=== PATIENT | male | born 1955 | race Caucasian/White ===

== ENCOUNTER 2018-04-28 02:57 | Emergency (ER) | payer OTHER ==
[~2018-04-28] VITALS: Ht 177.8 cm; Wt 83.9 kg
[~2018-04-28 02:57] MED LIST: AML5T PO; CLON0.2T PO; ENAL20TA70 PO; GABA300C10 PO; METF-370 PO; POTA10TA51 PO; SIMV-8 PO; WARF6TAB20 PO
[2018-04-28 03:00] VITALS: BP 176/118
--- NOTE | 2018-04-28 03:05 | NUR ---
Respiratory note: ABG RESULTS REPORTED TO DR. HAMILTON. NO NEW RESPIRATORY ORDERS GIVEN, PT REMAINS ON BIPAP, WILL CONTINUE TO MONITOR.
[2018-04-28] MEDS ORDERED: ALBUTEROL SULF 2.5 MG/0.5ML(0.5%) NEB SOLN NEB ONE ×3 (03:45→06:45)
[2018-04-28] MEDS ORDERED: DILTIAZEM HCL 25 MG/5 ML VIAL IV ONE ×2 (03:45→12:00)
[2018-04-28] MEDS ORDERED: IPRATROPIUM BROM 0.5 MG/2.5ML INH SOL NEB ONE ×2 (03:45→06:45)
[2018-04-28] MEDS ORDERED: methylPREDNISolone SOD SUCC 125 MG/2 ML VL IV ONE (03:45)
[2018-04-28 03:53] VITALS: BP 176/118
[2018-04-28] MEDS ORDERED: cefTRIAXone 1GM/50ML D5W 50 ML IV ONE (04:00)
[2018-04-28 04:07] LABS: Basophils # (auto) 0.1 uL; Basophils % (auto) 0.5 % (0.0-2.0); Eosinophils # (auto) 0.1 uL; Eosinophils % (auto) 1.1 % (0.0-7.0); Hematocrit 49.8 % (41.0-53.0); Hemoglobin 17.2 g/dL (13.5-17.5); Lymphocytes # (auto) 0.6 uL; Lymphocytes % (auto) 5.2 % (10.0-50.0); Mean Corpuscular Hemoglobin 33.6 pg (28.0-32.0); Mean Corpuscular Hgb Conc. 34.5 g/dL (32.0-36.0); Mean Corpuscular Volume 97.4 fL (80.0-100.0); Monocytes % (auto) 8.8 % (0.0-12.0); Neutrophils # (auto) 9.4 uL; Neutrophils % (auto) 84.4 % (37.0-80.0); Platelet Count (auto) 251 10^3/uL (140-450); Red Blood Cells 5.11 10^6/uL (4.5-5.90); Red Cell Distribution Width 13.4 % (11.8-14.3); White Blood Cell 11.1 10^3/uL (4.4-10.8)
[2018-04-28 04:20] LABS: INR 3.17 (0.9-1.15); Partial Thromboplastin Time 51.4 sec (23.78-33.04); Prothrombin Time 31.8 sec (9.27-12.13)
[2018-04-28 04:31] LABS: Magnesium 2.3 mg/dL (1.6-2.6); Phosphorus 3.6 mg/dL (2.5-4.90)
[2018-04-28 04:32] LABS: Albumin 4.6 g/dL (3.4-5.0); Anion Gap 11 (5-15); Blood Urea Nitrogen 11 mg/dL (7-18); Calcium 9.1 mg/dL (8.5-10.1); Carbon Dioxide 23 mmol/L (21-32); Chloride 105 mmol/L (98-107); Glucose 110 mg/dL (74-106); Potassium 3.2 mmol/L (3.5-5.1); Sodium 139 mmol/L (136-145)
[2018-04-28 04:35] LABS: Alanine Aminotransferase 30 U/L (16-61); BUN/Creatinine Ratio 12.6; GFR African American > 60 mL/min; GFR Non-African American > 60 mL/min
[2018-04-28 04:49] LABS: Alkaline Phosphatase 74 U/L (45-117); Aspartate Aminotransferase 24 U/L (15-37); Bilirubin, Total 0.9 mg/dL (0.2-1.0); Total Protein 8.5 g/dL (6.4-8.2)
[2018-04-28] MEDS ORDERED: HYDROcodone-ACET 10/325MG TAB PO ONE (06:15)
[2018-04-28 07:11] LABS: Urine Bacteria NONE SEEN /hpf (None Seen); Urine Blood 1+ /uL (Negative); Urine Hyaline Cast FEW /lpf (0 - 2); Urine Specific Gravity 1.015 (1.001-1.035); Urine WBC 12 /hpf (0 - 3)
[2018-04-28] MEDS ORDERED: POTASSIUM CHL 20 Meq TABLET PO ONE (07:45)
[2018-04-28] MEDS ORDERED: guaiFENesin 200 MG/10 ML UD PO PRN (08:15)
[2018-04-28] MEDS: cloNIDine HCL 0.1 MG TAB PO SCH ×2 (09:08→14:26)
[2018-04-28] MEDS ORDERED: amLODIPine BESYLATE 5 MG TAB PO SCH (10:00)
[2018-04-28] MEDS ORDERED: ALBUTEROL SULF 2.5 MG/0.5ML(0.5%) NEB SOLN NEB SCH (10:00)
[2018-04-28] MEDS ORDERED: BUDESONIDE (INHALATION) 0.5 MG/2 ML NEB NEB SCH (10:00)
[2018-04-28] MEDS ORDERED: IPRATROPIUM BROM 0.5 MG/2.5ML INH SOL NEB SCH (10:00)
[2018-04-28] MEDS ORDERED: ENALAPRIL MALEATE 10 MG TAB PO SCH (10:00)
[2018-04-28] MEDS ORDERED: ENALAPRILAT 1.25 MG/ML-1ML VIAL IV ONE (11:30)
[2018-04-28] MEDS ORDERED: PRED1PAK7 PO (11:33)
[2018-04-28] MEDS ORDERED: LEVO750T2 PO (11:33)
[2018-04-28] MEDS ORDERED: ALBU0.08 HHN (11:33)
[2018-04-28] MEDS ORDERED: ENALAPRILAT 1.25 MG/ML-1ML VIAL IV PRN (11:45)
[2018-04-28] MEDS ORDERED: GABAPENTIN 300 MG CAP PO SCH (14:00)
[2018-04-28] MEDS ORDERED: methylPREDNISolone SOD SUCC 125 MG/2 ML VL IV SCH (14:00)
[2018-04-28 14:26] VITALS: BP 132/94
== END 2018-04-28 14:45 | disposition home or self-care (01) ==
LOC: EDBD 02:57 → ER 02:57
DX: I48.91 Unspecified atrial fibrillation (principal); E11.9 Type 2 diabetes mellitus without complications; J40 Bronchitis, not specified as acute or chronic; I10 Essential (primary) hypertension; F12.90 Cannabis use, unspecified, uncomplicated; Z86.718 Personal history of other venous thrombosis and embolism
CPT/HCPCS: 36415; 36600; 71045; 80053; 81001; 82805; 82962; 83735; 83880; 84100; 84484; 85025; 85379; 85610; 85730; 93005; 94640; 96365; 96375; 96376; 99291; J0696; J2930; J7611; J7644

== ENCOUNTER 2021-09-25 18:52 | Emergency (ER) | payer OTHER ==
[~2021-09-25] VITALS: Ht 185.4 cm; Wt 95.3 kg
[~2021-09-25 18:52] MED LIST changes: +ALBU0.08 HHN; -ENAL20TA70 PO; +ENAL20TA8 PO; +LEVO750T8 PO; +PRED1PAK7 PO; +WARF6TAB2 PO; -WARF6TAB20 PO
[2021-09-25] MEDS ORDERED: ACETAMINOPHEN 325 MG TAB PO ONE (20:00)
[2021-09-25 20:09] LABS: Basophils # (auto) 0 10 ^3/uL (0-0.2); Basophils % (auto) 0.6 % (0.0-2.0); Eosinophils # (auto) 0 10 ^3/uL (0-0.8); Hematocrit 43.7 % (41.0-53.0); Hemoglobin 15.4 g/dL (13.5-17.5); Lymphocytes # (auto) 0.3 10 ^3/uL (0.4-5.4); Lymphocytes % (auto) 4.3 % (10.0-50.0); Mean Corpuscular Hemoglobin 33.8 pg (28.0-32.0); Mean Corpuscular Hgb Conc. 35.3 g/dL (32.0-36.0); Mean Corpuscular Volume 95.6 fL (80.0-100.0); Monocytes # (auto) 0.7 10 ^3/uL (0-1.3); Monocytes % (auto) 8.6 % (0.0-12.0); Neutrophils # (auto) 6.9 10 ^3/uL (1.6-8.6); Neutrophils % (auto) 86.5 % (37.0-80.0); Nucleated Red Blood Cells % 0.1 %; Red Blood Cells 4.57 10^6/uL (4.5-5.90); Red Cell Distribution Width 13.3 % (11.8-14.3); White Blood Cell 7.9 10^3/uL (4.4-10.8)
[2021-09-25 20:25] LABS: Albumin 3.6 g/dL (3.4-5.0); Potassium 3.3 mmol/L (3.5-5.1)
[2021-09-25 20:28] LABS: Bilirubin, Total 0.7 mg/dL (0.2-1.0)
[2021-09-25 20:31] VITALS: BP 113/62
== END 2021-09-25 22:13 | disposition home or self-care (01) ==
LOC: ER 18:52 → EDBD 18:52 → ER 22:13
DX: U07.1 COVID-19 (principal); R06.00 Dyspnea, unspecified; J45.909 Unspecified asthma, uncomplicated; E11.9 Type 2 diabetes mellitus without complications; E78.5 Hyperlipidemia, unspecified; I10 Essential (primary) hypertension; F12.10 Cannabis abuse, uncomplicated
CPT/HCPCS: 36415; 71045; 80053; 83880; 84484; 85025; 93005

== ENCOUNTER 2021-10-09 01:34 | Inpatient (IN) | payer OTHER ==
[~2021-10-09] VITALS: Ht 185.4 cm; Wt 103.6 kg
[2021-10-09 04:22] LABS: Basophils # (auto) 0.1 10 ^3/uL (0-0.2); Basophils % (auto) 0.5 % (0.0-2.0); Eosinophils # (auto) 0.1 10 ^3/uL (0-0.8); Eosinophils % (auto) 0.4 % (0.0-7.0); Hematocrit 40.3 % (41.0-53.0); Hemoglobin 13.8 g/dL (13.5-17.5); Lymphocytes # (auto) 0.7 10 ^3/uL (0.4-5.4); Lymphocytes % (auto) 4.2 % (10.0-50.0); Mean Corpuscular Hemoglobin 33.2 pg (28.0-32.0); Mean Corpuscular Hgb Conc. 34.3 g/dL (32.0-36.0); Mean Corpuscular Volume 96.7 fL (80.0-100.0); Monocytes % (auto) 5.9 % (0.0-12.0); Neutrophils # (auto) 14.6 10 ^3/uL (1.6-8.6); Red Blood Cells 4.17 10^6/uL (4.5-5.90); Red Cell Distribution Width 13.8 % (11.8-14.3); White Blood Cell 16.4 10^3/uL (4.4-10.8)
[2021-10-09 04:45] LABS: Calcium 8.8 mg/dL (8.5-10.1); Potassium 3.9 mmol/L (3.5-5.1)
[2021-10-09 04:52] LABS: Albumin 3.2 g/dL (3.4-5.0); BUN/Creatinine Ratio 18.8; Total Protein 6.1 g/dL (6.4-8.2)
[2021-10-09 05:01] LABS: INR 4.61 (0.9-1.15)
[2021-10-09] MEDS ORDERED: FUROSEMIDE 40 MG/4 ML VIAL IV ONE ×2 (05:30→08:15)
[2021-10-09] MEDS ORDERED: HYDROcodone-ACET 5/325MG TAB PO ONE (05:45)
[2021-10-09] MEDS ORDERED: PHYTONADIONE (VIT K)10 MG/ML 1ML VIAL SUBCUT ONE ×2 (06:00→15:15)
[2021-10-09 06:45] LABS: Urine Bacteria NONE SEEN /hpf (None Seen); Urine Blood Negative /uL (Negative); Urine Mucus FEW (None Seen); Urine Specific Gravity 1.019 (1.001-1.035); Urine WBC 3 /hpf (0 - 3)
[2021-10-09] MEDS ORDERED: cefTRIAXone 1GM/50ML D5W 50 ML IV ONE (07:45)
[2021-10-09] MEDS ORDERED: metroNIDAZOLE 500MG/100ML 100 ML IV ONE (07:45)
[2021-10-09 09:11] LABS: Lactic Acid w/Reflex 2.3 mmol/L (0.4-2.0)
[2021-10-09] MEDS ORDERED: ONDANSETRON HCL 4 MG/2 ML VIAL IV ONE (09:15)
[2021-10-09] MEDS ORDERED: MORPHINE SULFATE INJ 2 MG/ml SYRG IV ONE (09:15)
[2021-10-09] MEDS ORDERED: ACETAMINOPHEN 325 MG TAB PO PRN (10:00)
[2021-10-09] MEDS ORDERED: DEXTROSE (50%) 50ML SYRG IV PRN (10:00)
[2021-10-09] MEDS ORDERED: NITROGLYCERIN 0.4 MG SL TAB SL PRN (10:45)
[2021-10-09] MEDS ORDERED: MORPHINE SULFATE INJ 2 MG/ml SYRG IV PRN (10:45)
[2021-10-09] MEDS: ENOXAPARIN SOD 40 MG/0.4 ML SYRINGE SC SCH (10:57)
[2021-10-09] MEDS: MORPHINE SULFATE INJ 2 MG/ml SYRG IV PRN ×2 (10:57→17:37)
[2021-10-09] MEDS: FUROSEMIDE 40 MG/4 ML VIAL IV SCH (10:57)
[2021-10-09] MEDS: SODIUM CHLORIDE 0.9% 1,000 ML IV SCH (11:19)
[2021-10-09] MEDS: InsuLIN REG 1unit/0.01ml Soln (100units/ml) SC SCH ×3 (11:30→22:00)
[2021-10-09] MEDS: ACCU-CHEK COMFORT CURVE STRIP VI SCH ×3 (11:45→22:01)
[2021-10-09] MEDS: ONDANSETRON HCL 4 MG/2 ML VIAL IV PRN ×3 (12:01→22:40)
[2021-10-09] MEDS: HYDROcodone-ACET 5/325MG TAB PO PRN ×2 (12:01→22:02)
[2021-10-09] MEDS ORDERED: HYDROmorphone HCL 2 MG/ML VL/or syr IV ONE (13:15)
[2021-10-09] MEDS ORDERED: hydrALAZINE HCL 20 MG/ML VL IV PRN (13:45)
[2021-10-09] MEDS ORDERED: AMIODARONE HCL 150 MG in D5W 5% 100 ML IV ONE (14:00)
[2021-10-09] MEDS ORDERED: AMIODARONE 450mg/250ml AE 250 ML IV SCH (14:00)
[2021-10-09] MEDS: metroNIDAZOLE 500MG/100ML 100 ML IV SCH ×2 (14:47→21:46)
[2021-10-09] MEDS: PHYTONADIONE(VitK) ORAL Susp 10mg/10ml(1mg/ml) PO ONE ×2 (15:09→15:46)
[2021-10-09] MEDS: AMIODARONE 450mg/250ml AE 250 ML IV SCH (21:00)
[2021-10-09 22:00] VITALS: BP 115/78
[2021-10-10] MEDS: SODIUM CHLORIDE 0.9% 1,000 ML IV SCH (02:40)
[2021-10-10] MEDS: ONDANSETRON HCL 4 MG/2 ML VIAL IV PRN ×3 (03:07→15:20)
[2021-10-10 05:00] VITALS: BP 135/86
[2021-10-10] MEDS: metroNIDAZOLE 500MG/100ML 100 ML IV SCH ×2 (05:53→14:39)
[2021-10-10] MEDS: InsuLIN REG 1unit/0.01ml Soln (100units/ml) SC SCH ×4 (06:16→22:00)
[2021-10-10] MEDS: ACCU-CHEK COMFORT CURVE STRIP VI SCH ×4 (06:16→22:10)
[2021-10-10 07:04] LABS: Basophils # (auto) 0.1 10 ^3/uL (0-0.2); Basophils % (auto) 0.5 % (0.0-2.0); Eosinophils # (auto) 0 10 ^3/uL (0-0.8); Hematocrit 29.6 % (41.0-53.0); Hemoglobin 10.1 g/dL (13.5-17.5); Lymphocytes # (auto) 1.2 10 ^3/uL (0.4-5.4); Lymphocytes % (auto) 5.2 % (10.0-50.0); Monocytes # (auto) 1.6 10 ^3/uL (0-1.3); Monocytes % (auto) 7.2 % (0.0-12.0); Neutrophils # (auto) 19.9 10 ^3/uL (1.6-8.6); Neutrophils % (auto) 87.1 % (37.0-80.0); Nucleated Red Blood Cells % 0.1 %; Red Blood Cells 3.05 10^6/uL (4.5-5.90); Red Cell Distribution Width 13.9 % (11.8-14.3); White Blood Cell 22.8 10^3/uL (4.4-10.8)
[2021-10-10] MEDS: MORPHINE SULFATE INJ 2 MG/ml SYRG IV PRN (07:04)
[2021-10-10 07:13] LABS: Albumin 2.9 g/dL (3.4-5.0); BUN/Creatinine Ratio 16.2; Calcium 7.8 mg/dL (8.5-10.1); Potassium 4.7 mmol/L (3.5-5.1)
[2021-10-10 07:15] LABS: Total Protein 5.3 g/dL (6.4-8.2)
[2021-10-10 08:00] VITALS: BP 117/77
[2021-10-10] MEDS ORDERED: cefTRIAXone 1GM/50ML D5W 50 ML IV SCH (09:00)
[2021-10-10] MEDS: ENOXAPARIN SOD 40 MG/0.4 ML SYRINGE SC SCH ×2 (09:47→11:30)
[2021-10-10] MEDS: FUROSEMIDE 40 MG/4 ML VIAL IV SCH (09:47)
[2021-10-10] MEDS: HYDROcodone-ACET 5/325MG TAB PO PRN ×2 (10:05→15:21)
[2021-10-10 12:00] VITALS: BP 126/72
[2021-10-10] MEDS ORDERED: guaiFENesin 200 MG/10 ML UD GT PRN (14:15)
[2021-10-10] MEDS: AMIODARONE 450mg/250ml AE 250 ML IV SCH (14:28)
[2021-10-10 16:00] VITALS: BP 153/88
[2021-10-10] MEDS ORDERED: REMDESIVIR PER PHARMACY 0 ML IV SCH (16:15)
[2021-10-10] MEDS ORDERED: SODIUM CHLORIDE 0.9% 1,000 ML IV SCH (16:15)
[2021-10-10] MEDS ORDERED: REMDESIVIR 200 MG in NS 210ml LOADING DOSE ADULT IV ONE (16:45)
[2021-10-10] MEDS: CALCIUM CARB 500 MG CHEW TAB PO PRN (17:05)
[2021-10-10] MEDS ORDERED: SODIUM CHLORIDE 0.9% 1,000 ML IV ONE ×2 (17:15)
[2021-10-10 18:48] LABS: Hemoglobin 9.2 g/dL (13.5-17.5)
[2021-10-10] MEDS: AZITHROMYCIN 500MG/ 250ML 250 ML IV SCH (18:59)
[2021-10-10 19:04] LABS: INR 1.33 (0.9-1.15)
[2021-10-10] MEDS ORDERED: NITROGLYCERIN 2% OINT 1GM PKG TD ONE (19:15)
[2021-10-10] MEDS: ALBUTEROL SULF HFA 90MCG INH 200DOSE IN SCH (20:40)
[2021-10-10 21:07] LABS: Urine Amorphous Crystal FEW /hpf (None Seen); Urine Bacteria NONE SEEN /hpf (None Seen); Urine Blood Negative /uL (Negative); Urine Mucus FEW (None Seen); Urine WBC 3 /hpf (0 - 3)
[2021-10-10 21:32] LABS: Creatinine, Urine 143 mg/dL (30.0-125.0); Protein, Urine 65.9 mg/dL (0.0-11.9); Sodium Urine < 5 mmol/L (40-220)
[2021-10-10 22:00] VITALS: BP_SYST 109; BP_SYST 123; BP_DIAS 55; BP_DIAS 64
[2021-10-10] MEDS: FAMOTIDINE 20 MG TAB PO SCH (22:08)
[2021-10-10 22:23] VITALS: BP 123/55
[2021-10-11 01:30] LABS: Hematocrit 23.3 % (41.0-53.0); Hemoglobin 8.1 g/dL (13.5-17.5)
[2021-10-11] MEDS: ONDANSETRON HCL 4 MG/2 ML VIAL IV PRN (02:29)
[2021-10-11] MEDS: HYDROcodone-ACET 5/325MG TAB PO PRN (02:30)
[2021-10-11] MEDS: AMIODARONE 450mg/250ml AE 250 ML IV SCH (03:25)
[2021-10-11 05:00] VITALS: BP 153/71
[2021-10-11] MEDS: dilTIAZem HCL 60 MG TAB GT SCH ×4 (05:45→23:47)
[2021-10-11] MEDS: DOCUSATE SOD 100 MG CAP PO PRN (05:45)
[2021-10-11] MEDS: MORPHINE SULFATE INJ 2 MG/ml SYRG IV PRN ×3 (05:46→18:16)
[2021-10-11] MEDS: InsuLIN REG 1unit/0.01ml Soln (100units/ml) SC SCH ×4 (06:09→22:00)
[2021-10-11] MEDS: ACCU-CHEK COMFORT CURVE STRIP VI SCH ×4 (06:10→22:55)
[2021-10-11] MEDS: ALBUTEROL SULF HFA 90MCG INH 200DOSE IN SCH ×3 (06:22→22:00)
[2021-10-11 07:05] LABS: Basophils # (auto) 0 10 ^3/uL (0-0.2); Eosinophils # (auto) 0 10 ^3/uL (0-0.8); Eosinophils % (auto) 0.1 % (0.0-7.0); Red Cell Distribution Width 14.3 % (11.8-14.3)
[2021-10-11 07:13] LABS: Basophils % (auto) 0.1 % (0.0-2.0); Hemoglobin 7.8 g/dL (13.5-17.5); Lymphocytes # (auto) 1.1 10 ^3/uL (0.4-5.4); Mean Corpuscular Hemoglobin 32.7 pg (28.0-32.0); Mean Corpuscular Hgb Conc. 33.8 g/dL (32.0-36.0); Mean Corpuscular Volume 96.6 fL (80.0-100.0); Monocytes % (auto) 9.3 % (0.0-12.0); Neutrophils # (auto) 18.7 10 ^3/uL (1.6-8.6); Neutrophils % (auto) 85.5 % (37.0-80.0); Nucleated Red Blood Cells % 0.1 %; Red Blood Cells 2.38 10^6/uL (4.5-5.90); White Blood Cell 21.8 10^3/uL (4.4-10.8)
[2021-10-11 07:25] LABS: Potassium 3.9 mmol/L (3.5-5.1)
[2021-10-11 07:44] LABS: Albumin 2.3 g/dL (3.4-5.0); BUN/Creatinine Ratio 19.4; Bilirubin, Direct 0.3 mg/dL (0-0.2); Bilirubin, Total 0.6 mg/dL (0.2-1.0); CRP High Sensitivity 8.82 mg/dL (< 0.3); Phosphorus 3.1 mg/dL (2.5-4.90); Total Protein 4.8 g/dL (6.4-8.2); Uric Acid 9.5 mg/dL (3.5-7.2)
[2021-10-11 08:00] VITALS: BP 147/70
[2021-10-11] MEDS ORDERED: CHOLECALCIFEROL (VITD3) 2,000 UNIT CAP/TAB PO SCH (10:00)
[2021-10-11] MEDS ORDERED: ASCORBIC ACID 500 MG TAB PO SCH (10:00)
[2021-10-11] MEDS ORDERED: ZINC SULFATE 220mg CAP or TAB PO SCH (10:00)
[2021-10-11 10:48] LABS: INR 1.27 (0.9-1.15)
[2021-10-11] MEDS ORDERED: ALBU108A5 IN (11:12)
[2021-10-11] MEDS ORDERED: HYDR200T36 PO (11:12)
[2021-10-11] MEDS ORDERED: MONT-8 PO (11:12)
[2021-10-11] MEDS ORDERED: POTA8TAB2 PO (11:12)
[2021-10-11] MEDS ORDERED: HYDR-4798 PO (11:12)
[2021-10-11 12:00] VITALS: BP 147/69
[2021-10-11 12:00] LABS: Hematocrit 22.9 % (41.0-53.0); Hemoglobin 7.7 g/dL (13.5-17.5)
[2021-10-11] MEDS: DexAMETHasone SOD PHOS 10MG/1ML VIAL INJ IV SCH (12:41)
[2021-10-11] MEDS: ZINC SULFATE 220mg CAP or TAB PO SCH (12:41)
[2021-10-11] MEDS: AZITHROMYCIN 500MG/ 250ML 250 ML IV SCH (12:41)
[2021-10-11] MEDS: ASCORBIC ACID 500 MG TAB PO SCH (12:42)
[2021-10-11] MEDS: CHOLECALCIFEROL (VITD3) 2,000 UNIT CAP/TAB PO SCH (12:44)
[2021-10-11] MEDS ORDERED: REMDESIVIR 100mg 100 MG in SODIUM CHL 0.9% 230 ML IV SCH (15:00)
[2021-10-11 16:00] VITALS: BP 157/69
[2021-10-11 18:07] LABS: % Iron Saturation 32.8 % (20-55)
[2021-10-11] MEDS: HYDROcodone-ACET 10/325MG TAB PO PRN (20:13)
[2021-10-11 22:00] VITALS: BP 133/61
[2021-10-12] MEDS: DOCUSATE SOD 100 MG CAP PO PRN (03:55)
[2021-10-12] MEDS: HYDROcodone-ACET 10/325MG TAB PO PRN ×3 (03:55→17:52)
[2021-10-12 05:00] VITALS: BP 141/70
[2021-10-12] MEDS: dilTIAZem HCL 60 MG TAB GT SCH ×3 (06:01→17:51)
[2021-10-12] MEDS: InsuLIN REG 1unit/0.01ml Soln (100units/ml) SC SCH ×3 (06:01→17:00)
[2021-10-12] MEDS: ACCU-CHEK COMFORT CURVE STRIP VI SCH ×3 (06:02→17:06)
[2021-10-12 06:29] LABS: Mean Corpuscular Volume 95.9 fL (80.0-100.0)
[2021-10-12 06:33] LABS: Hematocrit 23.3 % (41.0-53.0); Mean Corpuscular Hemoglobin 32.8 pg (28.0-32.0); Mean Corpuscular Hgb Conc. 34.2 g/dL (32.0-36.0); Red Blood Cells 2.43 10^6/uL (4.5-5.90); Red Cell Distribution Width 14.1 % (11.8-14.3); White Blood Cell 19.8 10^3/uL (4.4-10.8)
[2021-10-12 06:46] LABS: Potassium 3.9 mmol/L (3.5-5.1)
[2021-10-12] MEDS: ALBUTEROL SULF HFA 90MCG INH 200DOSE IN SCH ×2 (06:47→20:03)
[2021-10-12 06:57] LABS: Albumin 2.5 g/dL (3.4-5.0); BUN/Creatinine Ratio 24.7; Bilirubin, Total 0.8 mg/dL (0.2-1.0); CRP High Sensitivity 5.28 mg/dL (< 0.3); Calcium 7.8 mg/dL (8.5-10.1); Total Protein 5.2 g/dL (6.4-8.2)
[2021-10-12 07:04] LABS: Basophils % (manual) 0 (0.0-2.0); Blast Cells 0; Eosinophils % (manual) 0 (0-7); Metamyelocytes % 0; Myelocytes % 0; Promyelocytes % 0; Reactive Lymphocytes 0
[2021-10-12 08:45] VITALS: BP 147/71
[2021-10-12 09:13] LABS: Band Neutrophils % (manual) 1; Lymphocytes % (manual) 6 (10.0-50.0); Monocytes % (manual) 2 (0-12)
[2021-10-12] MEDS: DexAMETHasone SOD PHOS 10MG/1ML VIAL INJ IV SCH (09:46)
[2021-10-12] MEDS: AZITHROMYCIN 500MG/ 250ML 250 ML IV SCH (09:46)
[2021-10-12] MEDS: ZINC SULFATE 220mg CAP or TAB PO SCH (09:47)
[2021-10-12] MEDS: FAMOTIDINE 20 MG TAB PO SCH (09:47)
[2021-10-12] MEDS: ASCORBIC ACID 500 MG TAB PO SCH (09:47)
[2021-10-12] MEDS: CHOLECALCIFEROL (VITD3) 2,000 UNIT CAP/TAB PO SCH (09:47)
[2021-10-12] MEDS: CALCIUM CARB 500 MG CHEW TAB PO PRN ×2 (10:41→18:26)
[2021-10-12] MEDS ORDERED: ALBUAER3 IN (11:27)
[2021-10-12] MEDS ORDERED: CHOL1CAP47 PO (11:27)
[2021-10-12] MEDS ORDERED: FAMO-12 PO (11:27)
[2021-10-12] MEDS ORDERED: ASCO500T11 PO (11:27)
[2021-10-12] MEDS ORDERED: FER325T PO (11:27)
[2021-10-12] MEDS ORDERED: GUAI-41 GT (11:27)
[2021-10-12] MEDS ORDERED: AZIT250T9 PO (11:27)
[2021-10-12 12:01] VITALS: BP 146/81
[2021-10-12 15:58] VITALS: BP 146/81
[2021-10-12 16:30] VITALS: BP 146/59
[2021-10-12] MEDS ORDERED: FERROUS SULFATE 325mg EC TAB PO SCH (18:00)
== END 2021-10-12 23:20 | disposition home health service (06) | DRG 871 ==
LOC: ER 01:36 → TELE 10:43 → TELE-EAST 19:58
PROVIDERS: ADMIT Nurse Practitioner Family; ATTEND Hospitalist
PROC: XW033E5 Introduction of Remdesivir Anti-infective into Peripheral Vein, Percutaneous Approach, New Technology Group 5 (ICD-10-PCS; principal; 2021-10-10)
DX: A41.89 Other specified sepsis (principal); I50.43 Acute on chronic combined systolic (congestive) and diastolic (congestive) heart failure; J96.01 Acute respiratory failure with hypoxia; U07.1 COVID-19; N17.0 Acute kidney failure with tubular necrosis; D62 Acute posthemorrhagic anemia; S36.62XA Contusion of rectum, initial encounter; J91.8 Pleural effusion in other conditions classified elsewhere; I13.0 Hypertensive heart and chronic kidney disease with heart failure and stage 1 through stage 4 chronic kidney disease, or unspecified chronic kidney disease; I16.0 Hypertensive urgency; S30.1XXA Contusion of abdominal wall, initial encounter; I48.91 Unspecified atrial fibrillation; J45.909 Unspecified asthma, uncomplicated; Z20.822 Contact with and (suspected) exposure to COVID-19; X58.XXXA Exposure to other specified factors, initial encounter; E78.5 Hyperlipidemia, unspecified; N18.2 Chronic kidney disease, stage 2 (mild); E11.22 Type 2 diabetes mellitus with diabetic chronic kidney disease; Y93.89 Activity, other specified; Y92.89 Other specified places as the place of occurrence of the external cause; Y99.8 Other external cause status
CPT/HCPCS: 36415; 71045; 74176; 74177; 76705; 80053; 80076; 81001; 82550; 82570; 82728; 82962; 83540; 83550; 83605; 83690; 83880; 84100; 84156; 84300; 84484; 84550; 85007; 85014; 85018; 85025; 85027; 85610; 85730; 86141; 87040; 87086; 93005; 93306; 94640; 96365; 96368; 96375; G0378; J0696; J1100; J1815; J2405; J3430; J3490; J7060